=== PATIENT | female | born 1995 | race Hispanic/Latino ===

== ENCOUNTER 2019-02-27 10:01 | Emergency (ER) | payer OTHER, SELFPAY ==
[~2019-02-27] VITALS: Ht 149.9 cm; Wt 63.8 kg
[~2019-02-27 10:01] MED LIST: PYRIDOXINE 50 MG TAB PO SCH
[2019-02-27] MEDS ORDERED: MULTTAB20 PO (10:09)
[2019-02-27] MEDS ORDERED: NS 1,000 ML IV ONE (11:00)
[2019-02-27] MEDS ORDERED: PILL CUTTER 1 EACH XX PRN (11:15)
[2019-02-27 11:30] LABS: BASO % 0.3 % (0.0-1.0); EOS % 0.3 % (0.0-3.0); HEMATOCRIT 33.8 % (36.0-47.0); LYMPH # 1.8 10^3/uL (1.5-6.5); LYMPH % 25.5 % (24.0-44.0); MEAN CORPUSCULAR HEMOGLOBIN 26.8 pg (27.0-33.0); MEAN CORPUSCULAR HGB CONC 32.5 g/dl (32.0-36.5); MEAN CORPUSCULAR VOLUME 82.4 fl (80.0-96.0); MONO # 0.5 10^3/uL (0.0-0.8); MONO % 7.7 % (0.0-5.0); NEUTROPHILS # 4.5 10^3/uL (1.8-7.7); NEUTROPHILS % 65.8 % (36.0-66.0); PLATELET COUNT, AUTOMATED 184 10^3/uL (150-450); WHITE BLOOD COUNT 6.9 10^3/uL (4.0-10.0)
[2019-02-27 12:02] LABS: ALBUMIN 3.6 GM/DL (3.2-5.2); ALT/SGPT 21 U/L (12-78); BILIRUBIN,DIRECT 0.2 MG/DL (0.0-0.2); BILIRUBIN,TOTAL 0.4 MG/DL (0.2-1.0); BLOOD UREA NITROGEN 8 MG/DL (7-18); CARBON DIOXIDE LEVEL 25 MEQ/L (21-32); CHLORIDE LEVEL 106 MEQ/L (98-107); CREATININE FOR GFR 0.51 MG/DL (0.55-1.30); GLOMERULAR FILTRATION RATE > 60.0 (>60); GLUCOSE, FASTING 85 MG/DL (70-100); LIPASE 222 U/L (73-393); POTASSIUM SERUM 3.9 MEQ/L (3.5-5.1); SODIUM LEVEL 138 MEQ/L (136-145); TOTAL PROTEIN 7.1 GM/DL (6.4-8.2)
--- NOTE | 2019-02-27 13:24 | REP ---
FIRST TRIMESTER OB ULTRASOUND: 02/27/2019. Clinical history: Pelvic cramping. Findings: No prior studies for this . Transabdominal imaging with the bladder only partially filled does show the uterus and it measures 8.8 x 5.5 x 6.9 cm. There is a gestational sac in the fundus of the uterus towards the right of midline. Within the sac there is a pole measuring 6 mm which corresponds to 6 weeks 2 days. This would give an EDC of 10/21/2019. heart rate is 120 bpm. There is a small yolk sac visible. There is a 3.2 x 1.0 x 0.8 cm small subchorionic bleed to the left side of the gestational sac. Right ovary is 2.2 x 3.0 x 1.2 cm. Normal Doppler tracing, no torsion. Color flow normal to that ovary. The left ovary is 3.7 x 1.7 cm in maximum diameter and has a 2.1 x 1.5 cm presumed hemorrhagic corpus luteum within it. There is color flow to that left ovary and left ovarian Doppler tracing with resistive index of 0.61. Impression: 1. Single intrauterine gestation at 6 weeks 2 days by crown-rump length with yolk sac seen and a small left-sided subchorionic bleed 3.2 x 1.0 x 0.8 cm. Her EDC is 09/18/2019.2. 2. The heart rate is 120 bpm. 3. Both ovaries show normal blood flow and Doppler tracings. There is a 2 cm presumed hemorrhagic corpus luteum in the left ovary. There is no pelvic free fluid. Electronically Signed by Neto Norwood MD 02/27/2019 09:54 P
[2019-02-27 14:07] VITALS: BP 125/59
== END 2019-02-27 14:20 | disposition home or self-care (01) ==
LOC: M ED 10:01
DX: O26.891 Other specified pregnancy related conditions, first trimester (principal); N83.292 Other ovarian cyst, left side; O20.8 Other hemorrhage in early pregnancy; O99.611 Diseases of the digestive system complicating pregnancy, first trimester; K59.00 Constipation, unspecified; Z3A.01 Less than 8 weeks gestation of pregnancy; O34.81 Maternal care for other abnormalities of pelvic organs, first trimester